=== PATIENT | male | born 1965 | race Caucasian/White ===

== ENCOUNTER 2017-03-03 20:24 | Emergency (ER) | payer MEDICARE, OTHER ==
[~2017-03-03] VITALS: Ht 182.9 cm; Wt 104.3 kg
--- NOTE | 2017-03-03 20:45 | ER.PDOC ---
General Chief Complaint: Requesting Medical Care Stated Complaint: FALL/FOOT PAIN TRAVEL OUT OF US: No Time seen by MD: 20:44 History of Present Illness Allergies: Coded Allergies: No Known Allergies (Unverified , 03/03/17) Departure Time of Disposition: 01:02 Condition: Left W/O Being Seen Referrals: PCP,UNKNOWN (PCP) PRIMARY CARE PROVIDER SALLY MONTALVO MD Mar 03, 2017 20:45
[2017-03-03 20:50] VITALS: BP 142/87
--- NOTE | 2017-03-03 20:50 | NUR ---
HOME MEDS PT STATES HE DOESN'T TAKE ANY HOME MEDS, DID TAKE ROXICET A YEAR AGO FOR HIS BACK PAIN, PT STATES HIM AND HIS BOYS ARE TRAVELING AROUND THE COUNTRY JUST LOOKING AROUND, PREVIOUSLY LIVED IN [place], STATES THEY ARE THINKING ABOUT MOVING ON TO [place]
--- NOTE | 2017-03-03 23:46 | NUR ---
JOSS CHURCH REPORTED PT LEFT ER WITH FAMILY MEMBERS.
== END 2017-03-03 23:46 | disposition home or self-care (01) ==
LOC: ER 20:24
DX: M79.673 Pain in unspecified foot (principal); Z53.21 Procedure and treatment not carried out due to patient leaving prior to being seen by health care provider

== ENCOUNTER 2017-03-04 07:56 | Emergency (ER) | payer MEDICARE, OTHER ==
[~2017-03-04] VITALS: Ht 188 cm; Wt 104.3 kg
[2017-03-04] MEDS ORDERED: NORFLEX ONE (08:45)
[2017-03-04] MEDS ORDERED: TORADOL ONE (08:45)
[2017-03-04] MEDS ORDERED: NORFLEX IM STA (08:45)
[2017-03-04] MEDS ORDERED: TORADOL IM STA (08:45)
--- NOTE | 2017-03-04 08:50 | ER.PDOC ---
General Chief Complaint: Back Pain/Injury Stated Complaint: PAIN FEET,LEGS,BACK Time seen by MD: 08:47 Source: patient Exam Limitations: no limitations History of Present Illness Initial Comments Low back pain, has chronic back pain and twisted his back stepping out of a trailer. Timing/Duration: yesterday Severity/Quality: moderate Radiation: lower legs Method of Injury: twisted Associated Symptoms: muscle spasms, lower back pain Allergies: Coded Allergies: No Known Allergies (Unverified , 03/03/17) Past Medical History Medical History: no pertinent history Surgical History: back Social History Smoking: greater than 1 pack/day Alcohol Use: none Drug Use: none Review of Systems Constitutional: no symptoms reported Respiratory: no symptoms reported Cardiovascular: no symptoms reported Gastrointestinal: no symptoms reported Musculoskeletal: see HPI All Other Systems: Reviewed and Negative Physical Exam General Appearance: No Apparent Distress, WD/WN Neck: Non-Tender, Normal Alignment Cardiovascular/Respiratory: Regular Rate, Rhythm, No M/R/G, Normal Peripheral Pulses, No JVD, Normal Breath Sounds, No Respiratory Distress Gastrointestinal: Normal Bowel Sounds, No Organomegaly, No Pulsatile Mass, Non Tender, Soft Back: Other (tenderness paraspinous muscles of L spine) Extremities: No Evidence of Injury, Normal Range of Motion, Non-Tender, No Pedal Edema, Pelvis Stable Neuro/Psych: Alert, raw silk grader nml/symmetrical, mood/effect nml, No Motor/Sensory Deficits, Relexes nml Course Blood Pressure Systolic: 165 Blood Pressure Diastolic: 103 Blood Pressure Mean: 123 Departure Time of Disposition: 08:49 Disposition: 01 HOME, SELF-CARE Impression: Primary Impression: Lumbar sprain Additional Impression: Low back pain Condition: Stable Referrals: PCP,UNKNOWN (PCP) PRIMARY CARE PROVIDER Additional Instructions: Tramadol Flexeril Medrol dose pack F/U with your PCP in 2-3 days Problem Qualifiers Primary Impression: Lumbar sprain Encounter type: initial encounter Qualified Codes: S33.5XXA - Sprain of ligaments of lumbar spine, initial encounter Additional Impression: Low back pain Chronicity: unspecified Back pain laterality: unspecified Sciatica presence : unspecified whether sciatica present Qualified Codes: M54.5 - Low back pain AARON FIELDS MD Mar 04, 2017 08:50
[2017-03-04 09:21] VITALS: BP 145/83
== END 2017-03-04 09:10 | disposition home or self-care (01) ==
LOC: ER 07:56
DX: S33.5XXA Sprain of ligaments of lumbar spine, initial encounter (principal); F17.200 Nicotine dependence, unspecified, uncomplicated; Z98.890 Other specified postprocedural states; X50.1XXA Overexertion from prolonged static or awkward postures, initial encounter; Y93.89 Activity, other specified; Y92.89 Other specified places as the place of occurrence of the external cause; Y99.8 Other external cause status
CPT/HCPCS: 96372 ×2; 99284; J1885; J2360

== ENCOUNTER 2017-03-09 14:08 | Emergency (ER) | payer MEDICARE, OTHER ==
[~2017-03-09] VITALS: Ht 188 cm; Wt 106.6 kg
--- NOTE | 2017-03-09 14:19 | NUR ---
TO ROOM AMBULATE TO ROOM WITHOUT ASSISTANCE. STATES THAT HE IS HAVING A ALLERGIC REACTION TO SERRIQUEL
[2017-03-09] MEDS ORDERED: VALIUM IV STA ×2 (14:38→15:43)
[2017-03-09] MEDS ORDERED: VALIUM ONE (14:38)
--- NOTE | 2017-03-09 14:47 | NUR ---
PATIENT CHECK PATIENT STATES FEELS BETTER MORE RELAXED. NO S/S OF STRESS. RESTING COMFORTABLY. SON IN ROOM WITH FATHER.
[2017-03-09] MEDS ORDERED: BENADRYL IV STA (15:03)
[2017-03-09] MEDS ORDERED: BENADRYL ONE (15:04)
--- NOTE | 2017-03-09 15:06 | ER.PDOC ---
General Chief Complaint: Altered Mental Status Stated Complaint: RACTION TO MEDICINE TRAVEL OUT OF US: No Time seen by MD: 15:04 Source: patient Exam Limitations: no limitations History of Present Illness Initial Comments Agitated and anxious today after taking Seroquel Timing/Duration: 4-6 hours Severity: moderate Associated Symptoms: denies symptoms Allergies: Coded Allergies: No Known Allergies (Unverified , 03/03/17) Past Medical History Surgical History: back Social History Smoking: greater than 1 pack/day Alcohol Use: none Drug Use: none Review of Systems Constitutional: no symptoms reported Respiratory: no symptoms reported Cardiovascular: no symptoms reported Gastrointestinal: no symptoms reported Genitourinary: no symptoms reported All Other Systems: Reviewed and Negative Physical Exam General Appearance: No Apparent Distress, Anxious EENT: eyes nml inspection Respiratory: chest non-tender, lungs clear, normal breath sounds, no respiratory distress CVS: reg rate & rhythm, no murmur, no gallop, pulses nml, nml capillary refill Gastrointestinal: Normal Bowel Sounds, No Organomegaly, No Pulsatile Mass, Non Tender Back: Normal Inspection Extremities: Normal Range of Motion Neurologic/Psychiatric: conduit cleaner II-XII NML as Tested, No Motor/Sensory Deficits, Alert, Normal Mood/Affect, Other (agitated) Results/Orders Results/Orders Administered Medications Medications (Trade) Dose Ordered Sig/Vika Route PRN Reason Start Time Stop Time Status Last Admin Dose Admin Diazepam (Valium) 5 mg STAT STAT IV 03/09/17 14:38 03/09/17 14:40 DC 03/09/17 14:40 Diphenhydramine HCl (Benadryl) 50 mg STAT STAT IV 03/09/17 15:03 03/09/17 15:04 DC 03/09/17 15:09 Progress Progress Patient feeling better, declined to have labs. Departure Time of Disposition: 15:47 Disposition: 01 HOME, SELF-CARE Impression: Primary Impression: Medication adverse effect Qualified Codes: T88.7XXA - Unspecified adverse effect of drug or medicament, initial encounter Additional Impression: Anxiety Condition: Stable Referrals: PCP,UNKNOWN (PCP) PRIMARY CARE PROVIDER Additional Instructions: Stop Seroquel F/U with your Psychiatrist tomorrow. AARON FIELDS MD Mar 09, 2017 15:05
--- NOTE | 2017-03-09 15:20 | NUR ---
DOCTOR IN ROOM WITH PATIENT, PATIENTS STILL ANXIOUS. ORDER GIVEN.
--- NOTE | 2017-03-09 15:33 | NUR ---
PATIENT CHECK PATIENT STATES THAT HE IS FEELING A BIT BETTER AFTER THE SECOND DOSE. SEEMS TO BE CALMER.
--- NOTE | 2017-03-09 15:45 | NUR ---
DOCTOR IN ROOM WITH PATIENT DISCUSSING TREATMENT PLAN.
[2017-03-09 15:56] VITALS: BP 113/82
== END 2017-03-09 15:56 | disposition home or self-care (01) ==
LOC: ER 14:08
DX: F41.9 Anxiety disorder, unspecified (principal); T43.595A Adverse effect of other antipsychotics and neuroleptics, initial encounter; F17.200 Nicotine dependence, unspecified, uncomplicated; Y92.89 Other specified places as the place of occurrence of the external cause
CPT/HCPCS: 96374; 96375; 96376; 99284; J1200; J3360

== ENCOUNTER 2017-04-10 21:54 | Emergency (ER) | payer MEDICARE, OTHER ==
[~2017-04-10] VITALS: Ht 188 cm; Wt 106.6 kg
[2017-04-10] MEDS ORDERED: NORFLEX IM STA (22:19)
--- NOTE | 2017-04-10 22:23 | ER.PDOC ---
General Chief Complaint: Lower Back Pain or Injury Stated Complaint: LOWER BACK PAIN TRAVEL OUT OF US: No Time seen by MD: 22:21 Source: patient, family Exam Limitations: no limitations History of Present Illness Initial Comments patient has had low back surgery and now has burning down both legs. Timing/Duration: 4-6 hours Severity: moderate Modifying Factors: improves with movement Allergies: Coded Allergies: No Known Allergies (Unverified , 03/03/17) Past Medical History Surgical History: back Social History Smoking: cigarettes, greater than 1 pack/day Alcohol Use: none Drug Use: none Reviewed Nursing Reviewed: Vital Signs, Abn. Noted, Nursing Assessment Review of Systems All Other Systems: Reviewed and Negative Physical Exam General Appearance: Moderate Distress EENT: eyes nml inspection Neck: Non-Tender Respiratory: chest non-tender CVS: reg rate & rhythm Gastrointestinal: Normal Bowel Sounds Rectal: Other (deferred) Back: Normal Inspection Extremities: Normal Range of Motion Neurologic/Psychiatric: washer off II-XII NML as Tested Skin: Normal Color Lymphatic: No Adenopathy Departure Time of Disposition: 22:22 Disposition: 01 HOME, SELF-CARE Impression: Primary Impression: Lumbar radiculopathy Condition: Stable Referrals: PCP,UNKNOWN (PCP) PRIMARY CARE PROVIDER OTILIO CASE MD Apr 10, 2017 22:23
[2017-04-10] MEDS ORDERED: NORCO 10MG PO ONE ×2 (22:26→22:30)
[2017-04-10] MEDS ORDERED: TORADOL ONE (22:26)
[2017-04-10] MEDS ORDERED: NORFLEX ONE (22:26)
[2017-04-10] MEDS ORDERED: TORADOL IM ONE (22:30)
[2017-04-10 22:48] VITALS: BP 132/86
== END 2017-04-10 22:45 | disposition home or self-care (01) ==
LOC: ER 21:54
DX: M54.16 Radiculopathy, lumbar region (principal); F17.210 Nicotine dependence, cigarettes, uncomplicated; Z98.890 Other specified postprocedural states
CPT/HCPCS: 96372 ×2; 99284; J1885; J2360